=== PATIENT | female | born 1985 | race Hispanic/Latino ===

== ENCOUNTER 2018-04-16 00:27 | Emergency (ER) | payer SELFPAY ==
[2018-04-16 00:36] VITALS: BP 104/73; PULSE 100; RESP 20; TEMP 98.3; O2SAT 98
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
--- NOTE | 2018-04-16 09:37 | CT ---
PROCEDURE: CT MAXILLOFACIAL BONES WITHOUT CONTRAST HISTORY: right facual swelling, orbital COMPARISON: None TECHNIQUE: Contiguous axial CT images of the maxillofacial bones were obtained. Coronal and sagittal reformats were generated. Radiation dose: Total exam DLP = 725.99 mGy-cm. This CT exam was performed using one or more of the following dose reduction techniques: Automated exposure control, adjustment of the mA and/or kV according to patient size, and/or use of iterative reconstruction technique. FINDINGS: NASAL BONES: Unremarkable. ORBITS: Unremarkable. PARANASAL SINUSES/ MASTOIDS: Clear. MAXILLA: No fracture. Pre maxillary soft tissue swelling likely secondary to focal trauma. MANDIBLE/ TEMPOROMANDIBULAR JOINTS: Unremarkable. SKULL BASE: Unremarkable. TEMPORAL BONES: Middle ears and mastoid grossly unremarkable. OTHER FINDINGS: None. IMPRESSION: No evidence of facial fracture. Right pre maxillary soft tissue swelling. Otherwise unremarkable. Preliminary interpretation of this examination was reported by [facility] at 3:34 a.m. on 04/16/2018. There is concurrence of this report with the preliminary interpretation.
== END 2018-04-16 02:26 | disposition left against medical advice (07) ==
LOC: MERGE 00:27 → C.ER 00:27
DX: S01.81XA Laceration without foreign body of other part of head, initial encounter (principal); Y04.0XXA Assault by unarmed brawl or fight, initial encounter